=== PATIENT | male | born 1980 | race Caucasian/White ===

== ENCOUNTER → 2021-11-13 16:00 | Outpatient (BNVA) | payer MEDICAID, SELFPAY | PROVIDERS: Family Provider Family Medicine; Visit Provider Emergency Medicine | DX: J20.9 Acute bronchitis, unspecified (principal); Z20.822 Contact with and (suspected) exposure to COVID-19 | CPT/HCPCS: 87635 ==

== ENCOUNTER 2021-12-26 08:20 | Outpatient (CLI) | payer MEDICAID, SELFPAY ==
--- NOTE | 2021-12-26 | MR_ITS ---
WS: [id number] MRI LUMBAR SPINE WITH AND WITHOUT CONTRAST HISTORY: POSTLAMINECTOMY SYNDROME COMPARISON: 06/16/2017 TECHNIQUE: Sagittal and axial multisequence imaging is submitted. Sagittal and axial T1 fat sat seque nces post-MultiHance 20 cc IV. Mild straightening of the normal cervical lordosis. Mild straightening of the normal lumbar lordosis. 2 mm retrolisthesis of L4. Moderate disc space narr owing at L4-5 and L5-S1. No fractures or marrow edema. The remaining discs are well preserved. Conus terminates normally at L1-2 disc level. L1-L2: Normal. L2-L3: Mild disc bulging with mild ligamentum flavum and facet arthritis. No stenosis. L3-L4: Mild disc bulging. Moderate facet joint arthritis, slightly greater on the LEFT. LEFT facet ar thritis encroaches into the LEFT lateral thecal sac and foramen. Very mild bilateral foraminal narrow ing. L4-L5: Mild annular disc bulge. Postsurgical changes are noted posterior soft tissues RIGHT hemilamin ectomy defect is difficult to identified today. There is mild disc contact and encroachment upon the traversing L5 nerve roots. Suspect there is a small foraminal disc protrusion on the RIGHT. Only mild foraminal narrowing. Prior RIGHT ligamentum flavum resection. L5-S1: Mild disc bulging and facet arthritis. Small disc and osteophytes extend into the foramen with mild foraminal stenosis, RIGHT slightly greater than LEFT. Similar to the prior study. No discitis or osteomyelitis. MR/MR lumbar spine wo/w con [id number] IMPRESSION: 1. Disc encroachment upon the traversing L5 nerve roots at L4-5. Mild bilatera l foraminal narrowing. 2. Bilateral mild foraminal narrowing at L5-S1, RIGHT greater than LEFT. Simil ar to the prior study with mild encroachment upon the exiting L5 nerve roots. 3. Moderate LEFT facet joint arthritis at L3-4. Mild bilateral foraminal steno sis at L3-4. 4. RIGHT hemilaminectomy defect at L4-5 is difficult to visualize today.
--- NOTE | 2021-12-26 | MR_ITS ---
WS: [id number] MRI CERVICAL SPINE NONCONTRAST HISTORY: Neck and arm pain. COMPARISON: 10/14/2017 Technique: Multiplanar, multisequence noncontrast imaging of the cervical spine. Mild straightening of the normal cervical lordosis. Very minimal reversal at C4-5. Mild disc bulging at C4-5, C5-6 and C6-7 as before. Signal within the cervical cord is normal. Visualized posterior fossa is unremarkable. Craniocervical junction, C1 and C2 relationship, odontoid process and soft tissues are normal. C2-C3: Normal. C3-C4: Mild facet arthritis and disc bulging. No stenosis or progression. C4-C5: Mild disc bulging with this shallow central disc protrusion. Mild bilateral facet arthritis. V leo minimal central and foraminal stenosis. No change since the prior study. C5-C6: Mild annular disc bulging with osteophytes extending into the foramina bilaterally and mild fa cet arthritis. Small central disc protrusion. Mild central and bilateral foraminal stenosis C6-C7: Mild annular disc bulge with a central disc protrusion. Disc protrusion extends just slightly greater to the LEFT of midline. Facet joint arthritis and foraminal osteophytes. Mild central and harvey ateral foraminal stenosis. C7-T1: Mild disc bulging. Paraspinal soft tissue are normal. MR/MR cervical spin wo con* [id number] IMPRESSION: 1. Multilevel cervical spondylosis. No significant change since 2018. 2. Central disc protrusion at C4-5 and facet arthritis. Mild central and shandra inal stenosis. 3. Central disc protrusion and facet disease at C5-6. Mild central and bilater al foraminal stenosis. 4. Central disc protrusions extends slightly to the LEFT of midline with facet joint arthritis at C6-7. Mild central and bilateral foraminal stenosis. [place] is is most significant at this level.
[2021-12-26] MEDS: gadobenate dimeglumine 20 mL vial IV (10:03)
== END 2021-12-26 08:21 | disposition home or self-care (01) ==
PROVIDERS: PCP Family Medicine; Visit Provider Anesthesiology Pain Medicine
DX: M48.02 Spinal stenosis, cervical region (principal); M96.1 Postlaminectomy syndrome, not elsewhere classified; M47.896 Other spondylosis, lumbar region; M48.07 Spinal stenosis, lumbosacral region; M47.892 Other spondylosis, cervical region; M50.223 Other cervical disc displacement at C6-C7 level
CPT/HCPCS: 72141; 72158

== ENCOUNTER → 2022-02-14 13:59 | Outpatient (BNVA) | payer MEDICAID, SELFPAY | PROVIDERS: PCP Family Medicine; Visit Provider Nurse Practitioner Family | DX: R68.89 Other general symptoms and signs (principal) | CPT/HCPCS: 87400 ==

== ENCOUNTER → 2022-04-02 09:40 | Outpatient (BNVA) | payer MEDICAID, SELFPAY | PROVIDERS: PCP Family Medicine; Visit Provider Anesthesiology Pain Medicine | DX: M50.90 Cervical disc disorder, unspecified, unspecified cervical region (principal); M47.812 Spondylosis without myelopathy or radiculopathy, cervical region; M54.81 Occipital neuralgia | CPT/HCPCS: 99205 ==

== ENCOUNTER → 2022-05-29 13:59 | Outpatient (BNVA) | payer MEDICAID, SELFPAY | PROVIDERS: PCP Family Medicine; Visit Provider Anesthesiology Pain Medicine | DX: M54.81 Occipital neuralgia (principal) | CPT/HCPCS: 64405; J1030; J3490 ==

== ENCOUNTER → 2022-09-26 09:53 | Outpatient (BNVA) | payer MEDICAID, SELFPAY | PROVIDERS: PCP Family Medicine; Visit Provider Anesthesiology Pain Medicine | DX: M50.90 Cervical disc disorder, unspecified, unspecified cervical region (principal); M47.812 Spondylosis without myelopathy or radiculopathy, cervical region; M54.81 Occipital neuralgia; M48.061 Spinal stenosis, lumbar region without neurogenic claudication | CPT/HCPCS: 99214 ==

== ENCOUNTER → 2022-10-10 14:00 | Outpatient (BNVA) | payer MEDICAID, SELFPAY | PROVIDERS: PCP Family Medicine; Visit Provider Anesthesiology Pain Medicine | DX: M54.12 Radiculopathy, cervical region (principal); M54.81 Occipital neuralgia; M50.90 Cervical disc disorder, unspecified, unspecified cervical region; M47.812 Spondylosis without myelopathy or radiculopathy, cervical region | CPT/HCPCS: 62321; J1100 ==

== ENCOUNTER → 2022-12-02 10:26 | Outpatient (BNVA) | payer MEDICAID, SELFPAY | PROVIDERS: PCP Family Medicine; Visit Provider Anesthesiology Pain Medicine | DX: M54.81 Occipital neuralgia (principal); M50.90 Cervical disc disorder, unspecified, unspecified cervical region; M47.812 Spondylosis without myelopathy or radiculopathy, cervical region; M54.9 Dorsalgia, unspecified | CPT/HCPCS: 99214 ==

== ENCOUNTER → 2023-03-19 09:37 | Outpatient (BNVA) | payer MEDICAID, SELFPAY | PROVIDERS: PCP Family Medicine; Visit Provider Anesthesiology Pain Medicine | DX: M54.81 Occipital neuralgia; M50.90 Cervical disc disorder, unspecified, unspecified cervical region; M47.812 Spondylosis without myelopathy or radiculopathy, cervical region; M48.07 Spinal stenosis, lumbosacral region; M47.816 Spondylosis without myelopathy or radiculopathy, lumbar region | CPT/HCPCS: 99214 ==

== ENCOUNTER → 2024-04-19 09:19 | Outpatient (BNVA) | payer MEDICAID, SELFPAY | PROVIDERS: PCP Family Medicine; Visit Provider Anesthesiology Pain Medicine | DX: M47.812 Spondylosis without myelopathy or radiculopathy, cervical region (principal); M50.90 Cervical disc disorder, unspecified, unspecified cervical region; R03.0 Elevated blood-pressure reading, without diagnosis of hypertension; M54.81 Occipital neuralgia | CPT/HCPCS: 99214 ==

== ENCOUNTER 2024-05-03 09:12 | Outpatient (CLI) | payer MEDICAID, SELFPAY ==
--- NOTE | 2024-05-03 09:30 | MR_ITS ---
WS: [email or web address] MRI CERVICAL SPINE with and without contrast HISTORY: Neck pain and headaches. Numbness in fingers. COMPARISON: 12/26/2021 Technique: Multiplanar, multisequence noncontrast imaging of the cervical spine. Imaging performed with and without contrast. Contrast: MultiHance 20 mL. Straightening and reversal of the normal cervical lordosis. No acute fractures or marrow edema. Mild disc space narrowing and osteophytic ridging around the vertebral bodies. Normal signal within the cord. Signal within the cervical cord is normal. Visualized posterior fossa is unremarkable. Craniocervical junction, C1 and C2 relationship, odontoid process and soft tissues are normal. C2-C3: Mild osteophytic ridging. Minimal foraminal encroachment by osteophytes. No stenosis. C3-C4: Diffuse annular disc bulging with osteophytic ridging. Minimal facet arthritis. Mild bilateral foraminal narrowing has slightly progressed since the prior study. C4-C5: Diffuse annular disc bulging with osteophytic ridging and mild facet arthritis. Mild central and bilateral foraminal stenosis. C5-C6: Diffuse annular disc bulging with osteophytic ridging and facet arthritis. Moderate central and bilateral foraminal stenosis. Previously described central disc protrusion has resolved. Stenosis has progressed. C6-C7: Diffuse osteophytic ridging with asymmetric disc bulging and a LEFT foraminal disc protrusion. Diffuse osteophytic ridging and mild facet arthritis. Mild to moderate central and bilateral foraminal stenosis, RIGHT greater than LEFT. C7-T1: Normal. Paravertebral soft tissues are negative. No discitis or osteomyelitis. No foraminal masses. MR/MR cervical spine wo/w [id number] IMPRESSION: 1. Patient has known multilevel degenerative disc and spondylosis in the cervi [place] spine with mild progression since 2021. 2. C5-6: Moderate central and bilateral foraminal stenosis which has progresse d since the prior study. Stenosis due to combination of osteophytosis and disc disease. 3. C6-7: Mild to moderate central with bilateral foraminal stenosis, RIGHT gre ater than LEFT. Mild progression since the prior study. 4. Mild bilateral foraminal stenosis at C3-4 and C4-5. Mild central stenosis a t C4-5 also. 5. No acute fractures. 6. No discitis or osteomyelitis.
[2024-05-03] MEDS: gadobenate dimeglumine 20 mL vial IV (10:03)
== END 2024-05-03 09:13 | disposition home or self-care (01) ==
LOC: RAD 09:13
PROVIDERS: PCP Family Medicine; Visit Provider Anesthesiology Pain Medicine
DX: M50.822 Other cervical disc disorders at C5-C6 level (principal); M47.892 Other spondylosis, cervical region; M48.02 Spinal stenosis, cervical region; M25.78 Osteophyte, vertebrae; M50.31 Other cervical disc degeneration, high cervical region; M50.321 Other cervical disc degeneration at C4-C5 level; M50.322 Other cervical disc degeneration at C5-C6 level; M50.323 Other cervical disc degeneration at C6-C7 level; M50.223 Other cervical disc displacement at C6-C7 level
CPT/HCPCS: 72156

== ENCOUNTER → 2024-07-01 15:24 | Outpatient (BNVA) | payer MEDICAID, SELFPAY | PROVIDERS: PCP Family Medicine; Referring Provider Anesthesiology Pain Medicine; Visit Provider Specialist | DX: M50.90 Cervical disc disorder, unspecified, unspecified cervical region (principal); G56.03 Carpal tunnel syndrome, bilateral upper limbs | CPT/HCPCS: 95911 ==

== ENCOUNTER → 2024-07-19 10:30 | Outpatient (BNVA) | payer MEDICAID, SELFPAY | PROVIDERS: PCP Family Medicine; Visit Provider Anesthesiology Pain Medicine | DX: M54.50 Low back pain, unspecified (principal); M54.9 Dorsalgia, unspecified; M54.2 Cervicalgia; R03.0 Elevated blood-pressure reading, without diagnosis of hypertension; M47.812 Spondylosis without myelopathy or radiculopathy, cervical region; G56.03 Carpal tunnel syndrome, bilateral upper limbs; G56.22 Lesion of ulnar nerve, left upper limb | CPT/HCPCS: 72110; 99215 ==

== ENCOUNTER 2024-08-18 10:51 | Outpatient (CLI) | payer MEDICAID, SELFPAY ==
--- NOTE | 2024-08-18 11:00 | MR_ITS ---
WS: [email or web address] MRI LUMBAR SPINE NONCONTRAST TECHNIQUE: Sagittal T1, T2 and STIR imaging. Axial T1 and T2 imaging. CLINICAL INFORMATION: M54.16 - Radiculopathy, lumbar region COMPARISON: MRI 2021 FINDINGS: Mild lumbar curve. No acute compression. Disc narrowing worse at L4-L5 and L5-S1 with endplate degenerative changes. Slight retrolisthesis L4 on L5. Presumed hemilaminectomies L4-5. L1-L2: Normal. L2-L3: Mild facet arthropathy. Spinal canal and foramen are patent. L3-L4: Slight retrolisthesis. Mild disc bulging with slight effacement of the ventral thecal sac. Narrowing of the subarticular recess bilaterally. Moderate facet arthropathy. Mild RIGHT greater than LEFT foraminal narrowing. Tiny RIGHT foraminal protrusion appears progressed compared to previous. Slight contact of the far exiting RIGHT L3 nerve root. L4-L5: Mild disc bulging. Slight narrowing of the subarticular recess bilaterally similar to previous. Moderate facet arthropathy. Mild RIGHT greater than LEFT foraminal narrowing. L5-S1: Mild disc bulge with endplate ridging. Moderate facet arthropathy. Narrowing of the subarticular recess bilaterally. Slight retrolisthesis L5 on S1. Mild bilateral foraminal narrowing. Visualized pelvic bony structures: Normal. Paravertebral soft tissues: Normal. MR/MR lumbar spine wo con* [id number] IMPRESSION: 1. Mild lumbar curve. No acute compression. 2. Prior laminectomies L4-5 similar to previous with residual narrowing of the subarticular recess. Mild RIGHT greater than LEFT foraminal narrowing at this level appears similar to previous. 3. Annular bulging L3-4 with narrowing of the subarticular recess bilaterally. 4. Small RIGHT foraminal protrusion L3-4 appears progressed with slight contac t of the far exiting RIGHT L3 nerve root. 5. Disc osteophyte complex L5-S1 with contact of the S1 nerve roots bilaterall y. Mild bilateral foraminal narrowing. This is similar to previous. 6. Moderate facet arthropathy L3-L5.
== END 2024-08-18 10:52 | disposition home or self-care (01) ==
PROVIDERS: PCP Family Medicine; Visit Provider Anesthesiology Pain Medicine
DX: M51.16 Intervertebral disc disorders with radiculopathy, lumbar region (principal); M48.061 Spinal stenosis, lumbar region without neurogenic claudication; M25.78 Osteophyte, vertebrae; M47.26 Other spondylosis with radiculopathy, lumbar region
CPT/HCPCS: 72148

== ENCOUNTER → 2024-09-08 11:09 | Outpatient (BNVA) | payer MEDICAID, SELFPAY | PROVIDERS: PCP Family Medicine; Visit Provider Internal Medicine | DX: E66.9 Obesity, unspecified (principal); I10 Essential (primary) hypertension | CPT/HCPCS: 99204 ==

== ENCOUNTER → 2024-10-18 10:44 | Outpatient (BNVA) | payer MEDICAID, SELFPAY | PROVIDERS: PCP Family Medicine; Visit Provider Anesthesiology Pain Medicine | DX: M54.9 Dorsalgia, unspecified (principal); M54.2 Cervicalgia; R03.0 Elevated blood-pressure reading, without diagnosis of hypertension; M54.81 Occipital neuralgia; M47.812 Spondylosis without myelopathy or radiculopathy, cervical region; G56.03 Carpal tunnel syndrome, bilateral upper limbs; G56.22 Lesion of ulnar nerve, left upper limb | CPT/HCPCS: 99214 ==

== ENCOUNTER → 2024-11-16 09:49 | Outpatient (BNVA) | payer MEDICAID, SELFPAY | PROVIDERS: PCP Family Medicine; Visit Provider Anesthesiology Pain Medicine | DX: M54.9 Dorsalgia, unspecified (principal); M54.2 Cervicalgia; M54.81 Occipital neuralgia; M47.812 Spondylosis without myelopathy or radiculopathy, cervical region; G56.03 Carpal tunnel syndrome, bilateral upper limbs; G56.22 Lesion of ulnar nerve, left upper limb; R03.0 Elevated blood-pressure reading, without diagnosis of hypertension | CPT/HCPCS: 99214 ==

== ENCOUNTER → 2024-11-23 12:30 | Outpatient (BNVA) | payer MEDICAID, SELFPAY | PROVIDERS: PCP Family Medicine; Visit Provider Internal Medicine | DX: I10 Essential (primary) hypertension (principal); R63.5 Abnormal weight gain | CPT/HCPCS: 36415; 82088; 84244; 84439; 84443; 84480; 99214 ==

== ENCOUNTER → 2024-12-27 14:07 | Outpatient (BNVA) | payer MEDICAID, SELFPAY | PROVIDERS: PCP Family Medicine; Visit Provider Anesthesiology Pain Medicine | DX: M47.896 Other spondylosis, lumbar region (principal); M47.812 Spondylosis without myelopathy or radiculopathy, cervical region; R03.0 Elevated blood-pressure reading, without diagnosis of hypertension; M54.81 Occipital neuralgia | CPT/HCPCS: 99214 ==

== ENCOUNTER → 2025-01-10 13:13 | Outpatient (BNVA) | payer MEDICAID, SELFPAY | PROVIDERS: PCP Family Medicine; Visit Provider Nurse Practitioner | DX: G56.03 Carpal tunnel syndrome, bilateral upper limbs (principal); G56.22 Lesion of ulnar nerve, left upper limb; M47.812 Spondylosis without myelopathy or radiculopathy, cervical region; Z98.890 Other specified postprocedural states | CPT/HCPCS: 73130; 99205 ==

== ENCOUNTER → 2025-01-19 08:50 | Outpatient (BNVA) | payer MEDICAID, SELFPAY | PROVIDERS: PCP Family Medicine; Visit Provider Anesthesiology Pain Medicine | DX: M54.16 Radiculopathy, lumbar region (principal) | CPT/HCPCS: 62323; J1010; J9999 ==

== ENCOUNTER → 2025-02-21 10:49 | Outpatient (BNVA) | payer MEDICAID, SELFPAY | PROVIDERS: PCP Family Medicine; Visit Provider Anesthesiology Pain Medicine | DX: M47.812 Spondylosis without myelopathy or radiculopathy, cervical region (principal); M54.81 Occipital neuralgia; G56.03 Carpal tunnel syndrome, bilateral upper limbs; G56.22 Lesion of ulnar nerve, left upper limb; R03.0 Elevated blood-pressure reading, without diagnosis of hypertension | CPT/HCPCS: 99214 ==